=== PATIENT | male | born 1960 | race Caucasian/White ===

== ENCOUNTER 2019-02-28 17:39 | Emergency (ER) | payer BC ==
[~2019-02-28] VITALS: Ht 188 cm; Wt 96.8 kg
[~2019-02-28 17:39] MED LIST: ASPI-496 PO; CEPH-368 PO; CITA20TA6 PO; CITA40TA5 PO; DOCU240C53 PO; FINA5TAB4 PO; GABA300C10 PO; METH500T97 PO; METO-93 PO; METO50TA82 PO; MULT-642 PO; NAPR-816 PO; OXYC-306 PO; OXYC15TA PO; OXYC5TAB3 PO; RIVA20TA PO; ROSU10TA2 PO; TAMS-11 PO; TIZA2TAB2 PO; UBID1CAP52 PO; ZOLP10TA PO
--- NOTE | 2019-02-28 18:12 | NUR ---
BREAK RN - PT REPORTS TO ED C/O NEAR SYNCOPE AND LOW BP AT HOME TODAY WHILE DOING YARDWORK. PT STATES HE HAD ALSO DEVP CHEST TIGHTNESS/DISCOMFORT AT THIS TIME. PT STATES AT THIS TIME HE IS FEELING BETTER. PT DENIES ANY FALLS OR RECENT TRAUMA. PER AT BEDSIDE PT WAS PALE AND DIAPHORETIC AT TIME OF INCIDENT. PT DNEIES ANY RECENT CHANGE IN BP MEDS. PT STATES HE HAS "HEARTBURN" FOR APPROX 1 WEEK, INTERMITTENT. ALSO C/O INTERMITTENT SLIGHT SWELLING IN ANKLES FOR 2 WEEKS AND ANKLE PAIN AT [facility] FOR A FEW MONTHS. PT A&OX4, NEURO INTACT. RESTING ON GURNEY WITH FAMLY AT BEDSIDE. CP MONIOTRS IN PLACE. REPORT TO PRIMARY RN, ABHISHEK.
[2019-02-28] MEDS ORDERED: LOSA25TA25 PO (18:23)
[2019-02-28] MEDS ORDERED: AMLO10TA8 PO (18:23)
[2019-02-28] MEDS ORDERED: DULO20CA45 PO (18:23)
[2019-02-28] MEDS ORDERED: ASPIRIN 81 MG TABLET CHEW PO ONE (18:30)
[2019-02-28] MEDS ORDERED: SODIUM CHLORIDE 0.9% 1,000ML IVBOLUS ONE (18:30)
[2019-02-28 18:41] LABS: BASOPHILS # (AUTO) 0.04 x10^3/uL (0-0.1); BASOPHILS % (AUTO) 0 % (0-1); EOSINOPHILS # (AUTO) 0.01 x10^3/uL (0-0.4); EOSINOPHILS % (AUTO) 0 % (1-7); LYMPHOCYTES # (AUTO) 0.96 x10^3/uL (1-3.4); LYMPHOCYTES % (AUTO) 10 % (22-44); MD NO; MEAN CORPUSCULAR HEMOGLOBIN 32.7 pg (27.5-34.5); MEAN CORPUSCULAR VOLUME 96.3 fL (81-97); MEAN PLATELET VOLUME 8.1 fL (7.4-10.4); MONOCYTES # (AUTO) 0.35 x10^3/uL (0.2-0.8); MONOCYTES % (AUTO) 4 % (2-9); NEUTROPHILS # (AUTO) 8.22 x10^3/uL (1.8-6.8); NEUTROPHILS % (AUTO) 86 % (42-75); PLATELET COUNT 341 x10^3/uL (130-400); RED BLOOD COUNT 4.95 x10^6/uL (4.38-5.82); RED CELL DISTRIBUTION WIDTH 12.8 % (9.4-14.8)
[2019-02-28 18:49] LABS: INTERNATIONAL NORMALIZED RATIO 1.08 (0.93-1.1); PROTHROMBIN TIME 11.3 Seconds (9.6-11.5)
[2019-02-28 18:52] LABS: ALANINE AMINOTRANSFERASE 44 U/L (12-78); ALBUMIN 4.3 g/dL (3.4-5.0); ANION GAP 7 mmol/L (5-15); CALCIUM 9.4 mg/dL (8.5-10.1); CHLORIDE 111 mmol/L (98-107); CREATININE 1.48 mg/dL (0.7-1.3)
[2019-02-28 18:56] LABS: ALKALINE PHOSPHATASE 66 U/L (45-117); BILIRUBIN,TOTAL 0.6 mg/dL (0.2-1.0); TOTAL PROTEIN 8.9 g/dL (6.4-8.2); TROPONIN I < 0.015 ng/mL (0.000-0.045)
[2019-02-28] MEDS ORDERED: ASPIRIN 81 MG TABLET CHEW ONE (19:09)
--- NOTE | 2019-02-28 19:33 | NUR ---
US COMPLETE. ORTHO VS COMPLETE. IV ESTABLISHED AND LABS DRAWN. IVF BOLUS STARTED. PT RESTING IN ROOM. VSS. NO NEEDS EXPRESSED. AWAITING RESULTS.
[2019-02-28 20:49] VITALS: BP 132/72
--- NOTE | 2019-02-28 20:50 | NUR ---
PT RESTING IN ROOM WITH FAMILY AT BS. VSS. IVF STILL INFUSING AT THIS TIME. PLAN TO DC AFTER IVF.
== END 2019-02-28 21:16 | disposition home or self-care (01) ==
LOC: ED 20:28
DX: E86.0 Dehydration (principal); R55 Syncope and collapse; N17.9 Acute kidney failure, unspecified; I48.91 Unspecified atrial fibrillation
CPT/HCPCS: 36415; 71045; 80053; 83880; 84484; 85025; 85610; 93005; 93971; 96360; 96361; 99284; J7030

== ENCOUNTER 2019-08-25 10:54 | Outpatient (CLI) | payer OTHER ==
[~2019-08-25 10:54] MED LIST changes: +AMLO10TA8 PO; +DULO20CA45 PO; +LOSA25TA25 PO
== END 2019-08-25 23:59 | disposition home or self-care (01) ==
LOC: STAR 10:54
PROVIDERS: ATTEND Neurological Surgery
DX: Z01.810 Encounter for preprocedural cardiovascular examination (principal); Z01.811 Encounter for preprocedural respiratory examination; M47.26 Other spondylosis with radiculopathy, lumbar region; R79.1 Abnormal coagulation profile; R94.31 Abnormal electrocardiogram [ECG] [EKG]; R82.90 Unspecified abnormal findings in urine
CPT/HCPCS: 93005

== ENCOUNTER → 2020-06-13 | Outpatient (CLI) | payer BC ==
[~2020-06-13] MED LIST changes: +AMLO-211 PO; -AMLO10TA8 PO; -OXYC15TA PO; +OXYC15TA3 PO; -TIZA2TAB2 PO; +TIZA2TAB4 PO
== END | disposition home or self-care (01) ==
LOC: RAD 10:55
PROVIDERS: ATTEND General Practice
DX: M48.02 Spinal stenosis, cervical region (principal); M43.22 Fusion of spine, cervical region
CPT/HCPCS: 72050